=== PATIENT | male | born 1980 | race Caucasian/White ===

== ENCOUNTER 2018-05-31 09:54 | Day surgery (SDC) | payer BC ==
[2018-05-31] MEDS ORDERED: NS 0.9% 1000 ML* 2,000 ML IV ONE (10:41)
--- NOTE | 2018-05-31 10:53 | ED ---
Abdominal Pain/Male - HPI Summary HPI Summary: Patient is a 37 y/o M presenting to ED with complaints of RLQ/right flank pain with nausea onset today at 0400/0430. Provider in room at 1020, patient's roommate/friend/former abiel Medel accompanying patient. He states that he was awakened from sleep at 0400/0430 due to the pain. Pain is described as " like someone shoved a ball in there and is holding it there". Patient also describes pain as a tightness when he is just sitting still, states that when he walks/stretches he experiences a sharp pain that radiates across his lower abdomen. Patient reports nausea but denies vomiting. In the room, he notes that he had diarrhea this morning and was feeling feverish. He states that he was experiencing chills last night. Patient believes that he is not dehydrated. He had coffee at 0730/0800 this morning, states that last solid food was last night. Patient reports no episodes of similar pain. He states that he has never had a kidney stone, denies hematuria. Patient denies radiation of pain to genitalia. He has not taken any medications for the pain. Patient is on Lisinopril for HTN. No allergies reported. No PSHx. Patient smokes 1/2-3/4 packs cigarettes daily, reports occasional alcohol consumption, no substance usage. 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 FMHx of mother with HTN. On triage, pain is rated 7/10, nothing is noted to aggravate/alleviate Sx. Home medications and allergies are reviewed. Home Medications Lisinopril 20 mg PO DAILY 05/31/18 [History Confirmed 05/31/18] Allergies Allergy/AdvReac Type Severity Reaction Status Date / Time No Known Allergies Allergy Verified 05/31/18 10:09 - History of Current Complaint Chief Complaint: EDAbdPain Stated Complaint: RIGHT SIDE ABD PAIN Time Seen by Provider: 05/31/18 10:22 Hx Obtained From: Patient, Family/Furniture Designer - friend Lizy Onset/Duration: Sudden Onset, Lasting Hours - pain onset 0400/0430, Still Present Timing: Constant, Lasting Hours - pain onset 0400/0430 Severity Initially: Moderate Severity Currently: Severe - 7/10 Pain Intensity: 7 Pain Scale Used: 0-10 Numeric - 7/10 Location: Discrete At: RLQ, Flank - right Radiates: Yes Radiates to: Flank - right Character: Sharp - when moving/stretching, Other: - tightness when sitting Aggravating Factor(s): Movement, Other: - stretching Alleviating Factor(s): Nothing Associated Signs And Symptoms: Positive: Fever - felt feverish, Nausea, Diarrhea , Other - chills last night. Negative: Constipation, Urinary Symptoms, Vomiting - Allergies/Home Medications Allergies/Adverse Reactions: Allergies Allergy/AdvReac Type Severity Reaction Status Date / Time No Known Allergies Allergy Verified 05/31/18 10:09 Home Medications: Home Medications Lisinopril 20 mg PO DAILY 05/31/18 [History Confirmed 05/31/18] PMH/Surg Hx/FS Hx/Imm Hx Previously Healthy: No Cardiovascular History: Reports: Hx Hypertension Sensory History: Denies: Hx Legally Blind, Hx Deafness Opthamlomology History: Denies: Hx Legally Blind EENT History: Denies: Hx Deafness - Surgical History Surgery Procedure, Year, and Place: 05/31/18 - no surgical history reported Infectious Disease History: No Infectious Disease History: Denies: Traveled Outside the [place] in Last 30 Days - Family History Known Family History: Positive: Hypertension - mother - Social History Occupation: Employed Full-time Lives: Dormitory/Roommates Alcohol Use: Occasionally Hx Substance Use: No Smoking Status (MU): Current Every Day Smoker - 1/2 - 3/4 packs daily Review of Systems Positive: Fever - patient reports that he felt feverish, temp on vitals noted to be 99.4 F , Chills - last night Cardiovascular: Negative Respiratory: Negative Positive: Abdominal Pain - RLQ , Diarrhea, Nausea, Other - NEGATIVE - CONSTIPATION . Negative: Vomiting Positive: flank pain - RIGHT. Negative: hematuria Musculoskeletal: Negative Skin: Negative Neurological: Negative Psychological: Normal All Other Systems Reviewed And Are Negative: Yes Physical Exam - Summary Physical Exam Summary: Appearance: Well-appearing, moderate pain distress, well-nourished, walking slowly, afebrile Skin: Warm, color reflects adequate perfusion, dry Head: Normal Head/Face inspection, atraumatic Eyes: Conjunctiva clear ENT: Normal inspection Neck: Supple, no nodes, no JVD Respiratory: Lungs clear, normal breath sounds, no respiratory distress Cardio: RRR, No murmur, pulses normal, brisk capillary refill Abdomen: Soft, RLQ tenderness with guarding, no rebound, nondistended Bowel sounds: Present Musculoskeletal: Strength Intact/ROM intact, no calf tenderness, no edema. No CVA tenderness Psychological: Normal Neuro: Alert, muscle tone normal, no focal deficit Triage Information Reviewed: Yes Vital Signs On Initial Exam: Initial Vitals Temp Pulse Resp BP Pulse Ox 99.4 F 86 15 132/97 99 05/31/18 10:07 05/31/18 10:07 05/31/18 10:07 05/31/18 10:07 05/31/18 10:07 Vital Signs Reviewed: Yes Diagnostics - Vital Signs Vital Signs Temp Pulse Resp BP Pulse Ox 05/31/18 10:07 99.4 F 86 15 132/97 99 - Laboratory Result Diagrams: 05/31/18 10:54 05/31/18 10:54 Lab Statement: Any lab studies that have been ordered have been reviewed, and results considered in the medical decision making process. - CT CT ADB/PEL CT Interpretation Completed By: Radiologist Summary of CT Findings: CT ABD/PEL IMPRESSION: CT findings are consistent with early acute appendicitis. THIS REPORT WAS REVIWED BY ED PHYSICIAN. Re-Evaluation - Re-Evaluation First Eval Re-Evaluation Time: 11:45 Change: Worse Comment: Patient states that he has been shivering, rates pain 7-8/10 at present. He reports no episodes of vomiting. Second Eval Re-Evaluation Time: 12:42 Change: Unchanged Comment: Patient is agreeable with morphine at this time. Pain is unchanged. Third Eval Re-Evaluation Time: 14:03 Change: Improved Comment: Informed of appendicitis. Patient's pain is controlled, patient advised to remain NPO. Fourth Eval Re-Evaluation Time: 16:05 Change: Unchanged Comment: Dr. Saravia has not arrived in ED yet, was in the OR when initially contacted. He will be contacted once more. This was relayed to patient. Pain remains controlled. Abdominal Pain Fem Course/Dx - Course Course Of Treatment: Patient is a 37 y/o M presenting to ED with complaints of RLQ/right flank pain with nausea onset today at 0400/0430. Provider in room at 1020, patient's roommate/friend/former abiel Medel accompanying patient. He states that he was awakened from sleep at 0400/0430 due to the pain. Pain is described as "like someone shoved a ball in there and is holding it there". Patient also describes pain as a tightness when he is just sitting still, states that when he walks/stretches he experiences a sharp pain that radiates across his lower abdomen. Patient reports nausea but denies vomiting. In the room, he notes that he had diarrhea this morning and was feeling feverish. He states that he was experiencing chills last night. Patient believes that he is not dehydrated. He had coffee at 0730/0800 this morning, states that last solid food was last night. Patient reports no episodes of similar pain. He states that he has never had a kidney stone, denies hematuria. Patient denies radiation of pain to genitalia. He has not taken any medications for the pain. Patient is on Lisinopril for HTN. No PSHx. On physical exam, moderate pain distress, patient walks slowly, tenderness at RLQ, soft, + guarding, no rebound. Bowel sounds are present, no CVA tenderness. CT ABD/PEL IMPRESSION: CT findings are consistent with early acute appendicitis. Labs showed WBC 19.3 , absolute neuts 15.9, absolute monos 1.5, ALT 55, AST 22, Alk Phos 73, CRP 11, amylase 59, lipase 29, lactic acid 0.9 . UA showed 1+ blood, 3+ RBC, absent bacteria, negative glucose. During ED course, patient received fluids, Zofran 4 mg IV ED ONCE, Morphine 8 mg IV ED ONCE ONE. Patient's case was discussed with Dr. Saravia at 1400, Dr. Saravia is in the OR at this time, and will come to ED when able, to evaluate patient. Patient to be started on piperacillin sod/ tazobactam sod 3.375 gm in sodium chloride 100 mls @ 200 mls/hr IVPB ED ONCE ONE. 1630 - At this point, patient had been evaluate and was accepted by Dr. Saravia to OR. Dx of acute appendicitis. - Diagnoses Differential Diagnosis/HQI/PQRI: Appendicitis, Gall Bladder Disease, Pancreatitis, Ureteral Stone, Urinary Tract Infection Provider Diagnoses: Acute appendicitis - Provider Notifications Discussed Care Of Patient With: Gerardo Saravia Time Discussed With Above Provider: 14:00 Instructed by Provider To: Admit As Inpatient - Patient's case was discussed with Dr. Saravia at 1400, when Dr. Saravia was in the OR. Dr. Saravia will come to ED to evaluate patient. Patient to be started on piperacillin sod/tazobactam sod 3.375 gm in sodium chloride 100 mls @ 200 mls/hr IVPB ED ONCE ONE. 1630 - At this point, patient had been evaluated and was accepted by Dr. Saravia to OR. Discharge - Sign-Out/Discharge Documenting (check all that apply): Patient Departure - admit - Discharge Plan Condition: Stable Disposition: ADMITTED TO [facility] - Billing Disposition and Condition Condition: STABLE Disposition: Admitted to [facility] - Attestation Statements Document Initiated by Rosy: Yes Documenting Scribe: MARISSA PERRY Provider For Whom Rosy is Documenting (Include Credential): ROSA JAMES MD Scribe Attestation: MARISSA Monreal , scribed for ROSA JAMES MD on 06/08/18 at 2134. Scribe Documentation Reviewed: Yes Provider Attestation: The documentation as recorded by the MARISSA wilkerson accurately reflects the service I personally performed and the decisions made by me, ROSA JAMES MD Status of Scribe Document: Viewed
[2018-05-31 11:01] LABS: ABS Basophils 0.1 10^3/ul (0-0.2); ABS Eosinophils 0.2 10^3/ul (0-0.6); ABS Lymphocytes 1.5 10^3/ul (1.0-4.8); ABS Monocytes 1.5 10^3/ul (0-0.8); ABS Neutrophils 15.9 10^3/ul (1.5-7.7); ABS Nucleated RBC 0 10^3/ul; Eosinophil % 1.2 %; Hematocrit 44 % (42-52); Hemoglobin 14.8 g/dl (14.0-18.0); Lymphocyte % 7.8 %; Mean Corpuscular HGB Conc 34 g/dl (31-36); Mean Corpuscular Hemoglobin 30 pg (27-31); Mean Corpuscular Volume 91 fL (80-94); Mean Platelet Volume 8.3 fL (7.4-10.4); Nucleated Red Blood Cells % 0; Platelet Count 256 10^3/ul (150-450); Red Blood Count 4.87 10^6/ul (4.00-5.40); Red Cell Distribution Width 13 % (10.5-15); White Blood Count 19.3 10^3/ul (3.5-10.8)
[2018-05-31 11:12] LABS: Activated Partial Thrombo Time 32.8 seconds (26.0-36.3); INR 0.9 (0.77-1.02)
[2018-05-31 11:18] LABS: Albumin 4.4 g/dL (3.2-5.2); Albumin/Globulin Ratio 1.5 (1-3); BUN/Creatinine Ratio 10.9 (8-20); Calcium 9.5 mg/dL (8.6-10.3); EGFR Non-African American 74.9 (>60); Globulin 2.9 g/dL (2-4); Magnesium 2.1 mg/dL (1.9-2.7); Potassium 4.3 mmol/L (3.5-5.0); Total Bilirubin 0.6 mg/dL (0.2-1.0); Total Protein 7.3 g/dL (6.4-8.9)
[2018-05-31] MEDS ORDERED: Morphine VIAL* 4 MG/ML VIAL (1 ml vial) IV ONE (12:42)
[2018-05-31] MEDS ORDERED: Ondansetron INJ* 2 MG/ML VIAL IV ONE (12:43)
[2018-05-31] MEDS ORDERED: Iohexol 300* (CONTRAST) 10 ML SDV IV ONE (12:52)
[2018-05-31 12:58] LABS: Urine Appearance Clear; Urine Bacteria Absent (Absent); Urine Bilirubin Negative (Negative); Urine Blood 1+ (Negative); Urine Color Yellow; Urine Glucose Negative (Negative); Urine Ketones Negative (Negative); Urine Nitrite Negative (Negative); Urine Protein Negative (Negative); Urine Red Blood Cell 3+(>10/hpf) (Absent); Urine Specific Gravity 1.018 (1.010-1.030); Urine Urobilinogen Negative (Negative); Urine White Blood Cell Absent (Absent)
[2018-05-31] MEDS ORDERED: Piperacillin/Tazobac ADVAN(*) 3.375 GM in NS 0.9% 100 ML* 100 ML IVPB ONE (14:02)
[2018-05-31] MEDS ORDERED: Lidocaine 2% PF * 5 ML VIAL ONE (16:46)
[2018-05-31] MEDS ORDERED: Succinylcholine* 20 MG/ML 10 ML VIAL ONE (16:46)
[2018-05-31] MEDS ORDERED: fentaNYL* 50 MCG/ML 2 ML VIAL (100 MCG VIAL) ONE ×2 (16:46→18:19)
[2018-05-31] MEDS ORDERED: Propofol* 10 MG/ML 20 ML BTL ONE ×2 (16:46→18:02)
[2018-05-31] MEDS ORDERED: Bupivacaine 0.25% EPI 200,000* 30 ML SDV ONE (17:21)
[2018-05-31] MEDS ORDERED: Ketorolac INJ* 30 MG/ML 1 ML VIAL ONE (17:52)
[2018-05-31] MEDS ORDERED: EPHEDrine (Pressors)* 50 MG/ML VIAL ONE (18:03)
--- NOTE | 2018-05-31 18:09 | HP ---
CC: [facility]; Dr. Cindy Banda HISTORY AND PHYSICAL: DATE OF ADMISSION: 05/31/18 HISTORY OF PRESENT ILLNESS: Mr. Charlton is a 37-year-old gentleman who presents to [facility] with complaints of right upper quadrant pain since 4 a.m. this morning. It is accompanied with alan sea, but without vomiting. The patient does not describe any change in bowel habits. He denies any fevers, but does endorse being cold. He denies any previous similar symptoms. He has decreased appe tite. Pain is alleviated with lying still and aggravated with bending over. PAST MEDICAL HISTORY: Hypertension. PAST SURGICAL HISTORY: None. MEDICATIONS: Lisinopril. ALLERGIES: No known drug allergies. FAMILY HISTORY: Noncontributory for ulcerative colitis or Crohn disease. SOCIAL HISTORY: He works in the [employer] business. He smokes half a pack a day of cigarettes. Mike es IV drug abuse. He occasionally drinks alcohol. REVIEW OF SYSTEMS: No fevers. No cardiovascular disease. No cerebrovascular disease. Abdominal co mplaints as described. No irritable bowel symptoms. No dysuria. No change in bowel habits. No cla udication-type symptoms. The patient is obese. PHYSICAL EXAMINATION GENERAL: He is alert and oriented x3. He is in no apparent distress. VITAL SIGNS: T-max is 100.9, is 100.1. HEAD, EYES, EARS, NOSE, AND THROAT: Normocephalic, atraumatic. Sclerae anicteric. Mucous membranes are dry. NECK: No lymphadenopathy. LUNGS: Clear. ABDOMEN: Soft, nondistended, tender along the right flank and right lower quadrant. No peritoneal s igns. No hernias or masses noted. No groin hernias. RECTAL: Exam not performed. EXTREMITIES: Within normal limits. LABORATORY DATA/DIAGNOSTIC STUDIES: Labs reviewed, white count is 19.3. Metabolic panel shows a cr eatinine of 1.1 and a CRP of 11. Urinalysis shows rbc's. CAT scan reviewed, oral contrast. The patient has what appears to be a retrocecal appendiciti s with adjacent inflammatory changes, but no evidence of perforation. IMPRESSION: Acute appendicitis. Recommended laparoscopic appendectomy. I outlined the details of t he procedure going over the risks, benefits, and alternatives. Spending time discussing the possible alternatives of antibiotic use. I do not recommend this, but it was discussed as a possibility. We spoke about possible complications, which include but not limited to bleeding, infection, need for additional procedures or open procedures, possibility of injury to adjacent organs and the need for additional treatment and even transfer. The patient's questions were answered, consent signed, he wa s marked. The patient has already received a dose of Zosyn. We will take him urgently to the operating room fo r a laparoscopic appendectomy. He may possibly go home after the procedure depending on what we find intraoperatively. [id number]/[facility] #: [id number]
[2018-05-31] MEDS ORDERED: Ondansetron INJ* 2 MG/ML VIAL ONE (18:17)
--- NOTE | 2018-05-31 18:34 | BRIEFOPN ---
Brief Operative Note - Surgery Procedures: Pre-OP Diagnoses: acute appendicitis Post-op Diagnosis: same Procedure: Laparoscopic appendectomy Surgeon: Manjit Asst: none Anethesia: KISHAA EBL: minimal IVF: 1600cc crystalloid Specimen: appendix Drains: none
[2018-05-31] MEDS ORDERED: oxyCODONE/Acetamin 5/325 MG* TAB PO PRN (19:31)
[2018-05-31] MEDS ORDERED: DiMENhydriNATE IV* 50 MG/ML VIAL IV PUSH PRN (19:31)
[2018-05-31] MEDS ORDERED: fentaNYL* 50 MCG/ML 2 ML VIAL (100 MCG VIAL) IV PRN (19:31)
[2018-05-31] MEDS ORDERED: HYDROcodone/ACETAMIN 5-325 MG* 1 TAB PO PRN (19:31)
[2018-05-31] MEDS ORDERED: Naloxone* 0.4 MG/ML 1 ML VIAL IV PRN (19:31)
[2018-05-31] MEDS ORDERED: DiMENhydriNATE IV* 50 MG/ML VIAL ONE (19:31)
[2018-05-31 19:53] VITALS: BP 143/94
--- NOTE | 2018-06-01 01:11 | OP ---
CC: Dr. Banda; [facility]. OPERATIVE REPORT: DATE OF OPERATION: 05/31/18. DATE OF : 78. SURGEON: Gerardo Saravia MD EXTRUDING PRESS ADJUSTER: None. ANESTHESIOLOGIST: Dr. Velazquez. ANESTHESIA: General. PRE-OP DIAGNOSIS: Acute appendicitis. POST-OP DIAGNOSIS: Acute appendicitis. OPERATIVE PROCEDURE: Laparoscopic appendectomy. ESTIMATED BLOOD LOSS: Minimal. FLUIDS: 1600 cc of crystalloid fluid given. SPECIMEN: Appendix. DESCRIPTION OF PROCEDURE: The patient was identified in the preoperative area, marked, brought to [facility] operating room, placed on the operating table in supine position. The patient already received pre operative antibiotics in the ER, no additional antibiotics were given. Sequential devices were place d on bilateral lower extremities. General anesthesia was induced. The patient's abdomen was clipped of hair, prepped and draped in the standard surgical fashion. A ti me-out was performed. Folds of the umbilicus were elevated anteriorly and a Veress needle was inserted into the abdominal c avity, which was then allowed to insufflate to a pressure of 15 mmHg. The patient tolerated the insu fflation well. A right upper quadrant incision was made and a 12-mm trocar with Optiview was inserte d. Veress needle was removed. Review of the abdomen showed normal-appearing small bowel. There was no free fluid. We then placed two 5 mm's along the lower midline and attention was turned towards t he right lower quadrant. Malcolm repositioned and appendix tracking up the lateral aspect of the cec um was identified, this had a retroperitoneal layer over it. This was taken with electrocautery and with scissors until we could rotate the appendix, which showed some exudative material at the base, b ut no evidence of perforation until we could rotate this medially. Window was made at the base of the appendix and a 45-mm argueta AMARIS stapling device was fired through this through healthy tissue at the ba se of the cecum. Additional dissection was carried out with electrocautery, taking the mesoappendix close to the appen gustavo until we were at the artery, which was then stapled off with a 45-mm hooks AMARIS stapling device. A ppendix was placed in the endoscopic retrieval bag. Review of the staple line showed no evidence of bleeding or enteric contents. We used a gauze to dab the sites and clean up any blood. This was minimal and we then put the patient back into neutral po sition. Review of the pelvis showed no evidence of additional disease or fluid. Gauze was removed a nd then the appendix in its endoscopic retrieval bag was removed through the right upper quadrant por t site. The abdomen was allowed to collapse. Trocars were removed under direct vision. All 3 skin incisions were reapproximated with 4-0 Monocryl subcuticular sutures followed by Steri-Strips and theresa rile dressing. The patient tolerated the procedure well, was transferred to the PACU in stable condi tion. [id number]/[facility] #: [id number]
== END 2018-05-31 16:25 | disposition home or self-care (01) ==
LOC: ED 09:54 → OR 16:25 → ED 16:25
PROVIDERS: ATTEND Surgery
DX: K35.80 Unspecified acute appendicitis (principal); R10.31 Right lower quadrant pain; I10 Essential (primary) hypertension; F17.210 Nicotine dependence, cigarettes, uncomplicated; R19.7 Diarrhea, unspecified; R11.0 Nausea
CPT/HCPCS: 36415; 74177; 80053; 81003; 81015; 82150; 83605; 83690; 83735; 85025; 85610; 85730; 86140; 88304; 99285; C1776; J0330; J1240; J1885; J2270; J2405; J2543; J2704; J3010; Q9967